=== PATIENT | male | born 1995 | race Caucasian/White ===

== ENCOUNTER 2017-06-04 11:06 | Emergency (ER) | payer OTHER ==
[2017-06-04] MEDS: cefTRIAXone IM 1 GM VIAL IM (12:27)
[2017-06-04] MEDS: IBUPROFEN 100 MG/5 ML ORAL.SUSP. PO (12:27)
[2017-06-04] MEDS: AZITHROMYCIN 250 MG TABLET. PO (12:28)
[2017-06-04 14:31] LABS: NEGATIVE OBC STREP NEG; POSITIVE OBC STREP POS
== END 2017-06-04 13:09 | disposition home or self-care (01) ==
LOC: ER 11:06
DX: J02.9 Acute pharyngitis, unspecified (principal)
CPT/HCPCS: 87070; 87880; 96372; 99283-25; J0696; Q0144

== ENCOUNTER 2017-08-09 13:30 | Emergency (ER) | payer OTHER ==
[2017-08-09] MEDS: diphenhydrAMINE HCL 25 MG CAPSULE PO (14:41)
[2017-08-09] MEDS: METOCLOPRAMIDE 10 MG TABLET. PO (14:41)
== END 2017-08-09 15:51 | disposition home or self-care (01) ==
LOC: ER 13:30
DX: R11.10 Vomiting, unspecified (principal); Z88.0 Allergy status to penicillin
CPT/HCPCS: 99283; J8597; Q0163